=== PATIENT | female | born 1980 | race Caucasian/White ===

== ENCOUNTER 2024-02-21 10:07 | Emergency (ER) | payer OTHER, SELFPAY ==
[2024-02-21 10:15] VITALS: BP 117/68
--- NOTE | 2024-02-21 12:33 | ED.GENMED ---
History of Present Illness
General
Chief Complaint: Head Injury
Source: patient and spouse
Exam Limitations: none
Time Seen by Provider: 02/21/24 10:31
Nursing documentation reviewed up to this point in time: agreed with
Travel History
Have you had any contact with someone who has COVID-19?: No
Do you have any symptoms of coronavirus? Fever > 100 degrees, chills, cough, shortness of breath, sore throat, loss of taste or smell, muscle aches, or headache?: No
History of Present Illness
History of Present Illness:
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
falling when she tripped over the diving board and fell on the right side of her head. Patient denies loss of consciousness, visual or speech difficulties. Patient denies any neck pain. Patient denies any change in her neurostatus. Patient
denies nausea and vomiting.
Past History
Past History
ED Past Medical History: CVA and Other (CVA as a child)
Social History
Tobacco: Non-smoker
Personal:
Review of Systems
Review of Systems
All Other Systems: Not applicable
Phy Exam
Physical Exam
Physical Exam:
Physical Exam
General: mild distress, alert and appropriate, well nourished, well hydrated
HENT: Normocephalic with tenderness and swelling about the right zygoma without crepitus, subcutaneous emphysema or bleeding, supple with no tracheal deviation or contusion. No cervical spine tenderness
Eyes: Clear sclera, conjuctiva without injection, no nystagmus, extraocular muscles intact
Heart: Regular rhythm and rate.
Lungs: No respiratory distress, no stridor, lung sounds clear and equal bilaterally, chest wall symmetrical and nontender
Abdomen: Soft, nontender, BS good
Neuro: Alert and oriented x 3, CN II - XII intact, chronic left-sided weakness which is unchanged, no cerebellar dysfunction
Skin: Superficial abrasions of the left hand posteriorly
Psychiatric: well kept. interactive and cooperative
Extremities: No edema, cyanosis, tenderness
Course
Orders/Labs/Results
Orders:
Orders
02/21/24 10:53
CT Head W/o Iv Contrast Urgent
Comment:
Reason For Exam: fall struck left head, hx of CVA on right at 8 yo
Vital Signs
Initial and Last Documented VS:
Initial Vital Signs
Temp Pulse Resp BP Pulse Ox
97.8 F 70 18 117/68 98
02/21/24 10:15 02/21/24 10:15 02/21/24 10:15 02/21/24 10:15 02/21/24 10:15
Last Documented Vital Signs
Temp Pulse Resp BP Pulse Ox
97.8 F 70 18 117/68 98
02/21/24 10:15 02/21/24 10:15 02/21/24 10:15 02/21/24 10:15 02/21/24 10:15
*Radiology
Radiology exam reviewed: radiology read reviewed (CT shows old infarct otherwise unchanged)
*Pulse Oximetry
Patient hypoxic: no
*EKG
Interpreted by ED Provider?: NA
*Agriculture Inspector Interpretation
Rate: Agriculture Inspector- N/A
*Critical Care Note
Total Time (30-74mins, 75-104mins- exclusive of procedures): Not Applicable
ED Attending Note
-
Portions of this chart may have been created with voice recognition software.� Occasional wrong word or��sound alike� substitutions may have occurred due to the inherent limitations of voice recognition software.
Discharge Plan
Departure
Patient Disposition: Home (Routine Discharge)
Date of Disposition: 02/21/24
Time of Disposition: 12:36
Patient with high blood pressure during this ER visit?: No
Condition: Good
Covid-19: Not Applicable
Discharge Problem:
Minor closed head injury, Facial contusion
Instructions: Concussion, Adult (DC), Head Injury in Adults (DC), Minor Head Injury (DC)
Prescriptions:
No Action
gabapentin 100 mg capsule
100 mg PO TID Qty: 30 0RF
Referrals:
Pebbles Hdez MD [Family Provider] - Follow up in 5-7 days
Activity Restrictions/Additional Instructions:
Continue present medications and therapy. Any problems please return immediately. You may use acetaminophen 650 mg or ibuprofen 400 mg every 6 hours for pain. Keep your abrasions clean with soap and water.
Interventions
Interventions:
*General Assessment Last Done: 02/21/24 10:23
*ED COVID-19 Vaccine History Last Done: 02/21/24 10:23
Discharge Date and Time
Print Language: DANISH
== END 2024-02-21 12:50 | disposition home or self-care (01) ==
LOC: EMR 10:07
PROVIDERS: EMERGENCY PHYSICIAN Emergency Medicine; FAMILY PHYSICIAN Student in an Organized Health Care Education/Training Program
DX: S00.83XA Contusion of other part of head, initial encounter (principal); S09.90XA Unspecified injury of head, initial encounter; W18.09XA Striking against other object with subsequent fall, initial encounter
CPT/HCPCS: 99284; 70450

== ENCOUNTER → 2024-03-25 15:54 | Outpatient (REF) | payer OTHER, SELFPAY | LOC: HWWDC 15:54 | PROVIDERS: ATTENDING PHYSICIAN Student in an Organized Health Care Education/Training Program | DX: Z12.31 Encounter for screening mammogram for malignant neoplasm of breast (principal) | CPT/HCPCS: 77063; 77067 ==